=== PATIENT | male | born 1980 | race Caucasian/White ===

== ENCOUNTER 2023-05-04 16:46 | Emergency (ER) | payer OTHER, MEDICAID ==
[~2023-05-04] VITALS: Ht 175.3 cm; Wt 95.3 kg
[2023-05-04 16:58] VITALS: BP_SYST 146; PULSE 71; RESP 20; TEMP 99.1; O2SAT 96
[2023-05-04] MEDS ORDERED: MORPHINE 4 MG INJ. 4 MG/ML VIAL IM ONE (17:15)
[2023-05-04 18:21] LABS: BASOPHILS # (AUTO) 0.2 K/uL (0.0-0.2); BASOPHILS % (AUTO) 2.1 % (0.0-2.0); EOSINOPHILS # (AUTO) 0.3 K/uL (0.0-0.4); EOSINOPHILS % (AUTO) 4.3 % (0.0-4.0); HEMATOCRIT 27.6 % (36-54); HEMOGLOBIN 8.7 g/dL (14.0-18.0); LYMPHOCYTES # (AUTO) 1.5 K/uL (1.0-5.5); LYMPHOCYTES % (AUTO) 19.8 % (20.5-51.5); MEAN CORPUSCULAR HEMOGLOBIN 32 pg (27-31); MEAN CORPUSCULAR HGB CONC 32 % (32-36); MEAN CORPUSCULAR VOLUME 101 fL (79.0-98.0); MONOCYTES # (AUTO) 1.2 K/uL (0.0-1.0); MONOCYTES % (AUTO) 16.7 % (1.7-9.3); NEUTROPHILS # (AUTO) 4.2 K/uL (1.8-7.7); NEUTROPHILS % (AUTO) 57.1 % (40.0-70.0); PLATELET COUNT (AUTO) 349 K/uL (130-430); RED BLOOD CELL COUNT(AUTO) 2.74 MIL/uL (4.2-6.2); RED CELL DISTRIBUTION WIDTH 19.2 % (9.0-15.0); WHITE BLOOD COUNT (AUTO) 7.3 K/uL (4.8-10.8)
[2023-05-04 18:45] LABS: ALBUMIN 2.3 g/dL (3.4-4.8); CALCIUM 8.1 mg/dL (8.4-11.0); CREATININE 5.58 mg/dL (0.55-1.30); POTASSIUM 4.1 mmol/L (3.5-5.1); TOTAL BILIRUBIN 0.5 mg/dL (0.0-1.0); TOTAL PROTEIN, SERUM 8.7 g/dL (6.4-8.3)
[2023-05-04] MEDS ORDERED: MORPHINE 4 MG INJ. 4 MG/ML VIAL IVP ONE (20:45)
[2023-05-04] MEDS ORDERED: HYDROmorphone 1 MG/ML INJ. CARTRIDGE IVP ONE (22:00)
[2023-05-04 23:30] VITALS: BP_SYST 149; PULSE 76; RESP 19; TEMP 98; O2SAT 100
== END 2023-05-04 23:30 | disposition home or self-care (01) ==
LOC: SED 16:46
DX: R60.1 Generalized edema (principal); N50.811 Right testicular pain; N50.812 Left testicular pain; K21.9 Gastro-esophageal reflux disease without esophagitis; R10.30 Lower abdominal pain, unspecified; E11.9 Type 2 diabetes mellitus without complications; Z88.5 Allergy status to narcotic agent; Z88.8 Allergy status to other drugs, medicaments and biological substances; Z79.899 Other long term (current) drug therapy
CPT/HCPCS: 80053; 83690; 85025; 36415; 76376; 74177; 76870; 99285; 96374; 96375; 96376; J1170; J2270; Q9967